=== PATIENT | female | born 1990 | race Caucasian/White ===

== ENCOUNTER → 2024-10-26 | Outpatient (CLI) | payer OTHER, SELFPAY ==
--- NOTE | 2024-10-26 08:45 | XR_ITS ---
Examination: Thyroid sonography complete TECHNIQUE: Grayscale sonographic images thyroid lobes INDICATIONS: Diagnosis Cecilio's thyroiditis Date and time: October 26, 2024 0845 hours FINDINGS: Right thyroid 4.5 cm Upper pole nodule 2.0 x 1.6 cm Lower pole nodule 6 x 8 x 7 mm Left thyroid 3.6 cm Midpole nodule 12 x 9 mm IMPRESSION: Bilateral thyroid nodules as above, consider ultrasound-guided fine-needle aspiration of the largest nodule in the right upper lobe
== END | disposition home or self-care (01) ==
LOC: CDIM 08:30
PROVIDERS: PCP Physician Assistant Medical; Referring Provider Physician Assistant Medical; Visit Provider Physician Assistant Medical
DX: E06.3 Autoimmune thyroiditis (principal)
CPT/HCPCS: 76536